=== PATIENT | male | born 2000 | race Two or more races ===

== ENCOUNTER 2025-09-28 23:18 | Emergency (ER) | payer OTHER ==
[~2025-09-28] VITALS: Ht 167.6 cm; Wt 58.5 kg
[2025-09-29 00:05] VITALS: BP 124/87; TEMP 98.6; O2SAT 100
[2025-09-29] MEDS ORDERED: IBUP-1490 PO (00:15)
[2025-09-29] MEDS ORDERED: TDAP [DIPH/PERTUSSIS/TET] 0.5 ML VIAL IM ONE ×2 (00:30→00:46)
[2025-09-29] MEDS ORDERED: IBUPROFEN 600 MG TABLET ONE (00:46)
[2025-09-29] MEDS: IBUPROFEN 600 MG TABLET PO ONE (01:03)
== END 2025-09-29 01:06 | disposition home or self-care (01) ==
LOC: ER 23:33
DX: S61.210A Laceration without foreign body of right index finger without damage to nail, initial encounter (principal); W27.8XXA Contact with other nonpowered hand tool, initial encounter; Y93.89 Activity, other specified; Y92.69 Other specified industrial and construction area as the place of occurrence of the external cause; Y99.0 Civilian activity done for income or pay
CPT/HCPCS: 90715